=== PATIENT | female | born 1980 | race Caucasian/White ===

== ENCOUNTER → 2023-12-03 09:10 | Outpatient (REF) | payer OTHER, SELFPAY | LOC: WDC 09:10 | PROVIDERS: ATTENDING PHYSICIAN Obstetrics & Gynecology; FAMILY PHYSICIAN Nurse Practitioner Adult Health | DX: Z12.31 Encounter for screening mammogram for malignant neoplasm of breast (principal) | CPT/HCPCS: 77063; 77067 ==

== ENCOUNTER → 2024-02-06 11:04 | Outpatient (REF) | payer OTHER, SELFPAY | LOC: WDC 11:04 | PROVIDERS: ATTENDING PHYSICIAN Nurse Practitioner Family; FAMILY PHYSICIAN Nurse Practitioner Adult Health | DX: R92.2 Inconclusive mammogram (principal) | CPT/HCPCS: 76641 ==

== ENCOUNTER → 2024-08-05 08:00 | Outpatient (REF) | payer OTHER, SELFPAY | LOC: WDC 08:00 | PROVIDERS: ATTENDING PHYSICIAN Nurse Practitioner Family; FAMILY PHYSICIAN Nurse Practitioner Adult Health | DX: R92.8 Other abnormal and inconclusive findings on diagnostic imaging of breast (principal) | CPT/HCPCS: 76642 ==

== ENCOUNTER → 2024-12-08 08:33 | Outpatient (REF) | payer OTHER, SELFPAY | LOC: WDC 08:33 | PROVIDERS: ATTENDING PHYSICIAN Nurse Practitioner Adult Health | DX: Z12.31 Encounter for screening mammogram for malignant neoplasm of breast (principal) | CPT/HCPCS: 77063; 77067 ==

== ENCOUNTER → 2025-01-21 09:05 | Outpatient (REF) | payer OTHER, SELFPAY | LOC: WDC 09:05 | PROVIDERS: ATTENDING PHYSICIAN Advanced Practice Midwife; FAMILY PHYSICIAN Nurse Practitioner Adult Health | DX: N63.20 Unspecified lump in the left breast, unspecified quadrant (principal); N63.23 Unspecified lump in the left breast, lower outer quadrant | CPT/HCPCS: 76642 ==

== ENCOUNTER → 2025-02-09 08:19 | Outpatient (REF) | payer OTHER, SELFPAY | LOC: WDC 08:19 | PROVIDERS: ATTENDING PHYSICIAN Advanced Practice Midwife; FAMILY PHYSICIAN Nurse Practitioner Adult Health | DX: R92.8 Other abnormal and inconclusive findings on diagnostic imaging of breast (principal) | CPT/HCPCS: 76642 ==